=== PATIENT | female | born 1995 | race African-American/Black ===

== ENCOUNTER 2017-01-24 01:29 | Emergency (ER) | payer BC ==
[~2017-01-24] VITALS: Ht 160 cm; Wt 59.0 kg
--- NOTE | 2017-01-24 01:48 | PHYS DOC ---
General Chief Complaint: UPPER EXTREMITY INJURY Stated Complaint: LEFT PINKIE INJURY Time Seen by MD: 01:32 Source: patient Exam Limitations: no limitations Problems: History of Present Illness Initial Comments Patient is a 21-year-old female who comes to the ED with a family member complaining of left fifth finger injury. Patient states that she was at a [employer] activity playing basketball tonight when she accidentally jammed her left fifth finger against an opposing player. She says her finger may have bent backwards when she is not sure. She has pain and swelling at the proximal interphalangeal joint. She has decreased range of motion due to discomfort but denies numbness tingling weakness or radiating symptoms. No pre-arrival treatment patient is normally healthy she takes no daily medications and she denies any other complaints or injuries resulting from the inciting events. Onset: this morning Severity: moderate Pain/Injury Location: left 5th finger Method of Injury: direct blow, sports injury Modifying Factors: worse with jarring, worse with movement, improves with rest Allergies: Coded Allergies: No Known Drug Allergies (Unverified , 01/24/17) Past Medical History Medical History: no pertinent history Surgical History: no surgical history Social History Smoker: non-smoker Alcohol: none Drugs: none Review of Systems Constitutional: denies chills, denies fever Respiratory: denies cough Cardiovascular: denies chest pain, denies palpitations Gastrointestinal: denies nausea, denies vomiting Genitourinary: denies dysuria, denies frequency Musculoskeletal: see HPI Skin: see HPI Psychiatric/Neurological: see HPI Physical Exam General Appearance: WD/WN, no apparent distress Neck: non-tender, supple Cardiovascular/Respiratory: normal peripheral pulses, no respiratory distress Hand: swelling (bruising tenderness and swelling noted at the left fifth finger proximal interphalangeal joint, ligaments and tendons are intact there is no palpable bony deformity the extremity is neurovascularly intact.) Neurologic/Tendon: normal sensation, normal motor functions, normal tendon functions, responds to pain, no evidence tendon injury Psychiatric: alert, oriented x 3 Skin: warm/dry (left fifth finger bruising as above) Orders, Labs, Meds Fingers left: Volar plate fracture of the proximal interphalangeal joint of the left fifth finger. Interpreted by Dr. Fritz. I discussed the treatment plan with the patient and her father expressed agreement and understanding. The finger was neurovascularly intact after metal finger splint placed. Departure Time of Disposition: 02:03 Disposition: 01 HOME, SELF-CARE Diagnosis: volar plate fracture PIP joint L 5th finger Condition: GOOD Patient Instructions: Finger Fracture, [id number], RICE - Routine Care for Injuries, [id number] Additional Instructions: PARVIZ, see handout. Wear the metal finger splint +/- ceci taping except when bathing and until cleared by your doctor. No use left hand until cleared by your doctor. [id number] Tylenol or ibuprofen as needed. Follow-up with your doctor next week for recheck and possible orthopedics referral. Return to ED with new or changing symptoms. ADELAIDA FRITZ DO Jan 24, 2017 01:48
[2017-01-24 02:00] VITALS: BP 105/72
--- NOTE | 2017-01-24 08:22 | RAD ---
Indication injury. Pain. AP oblique and lateral views were obtained targeted to the small finger of the left hand. There is a tiny avulsion fracture off the base of the middle phalanx on the flexor side. No additional bony finding seen
== END 2017-01-24 02:20 | disposition home or self-care (01) ==
LOC: ER 01:29
DX: S62.617A Displaced fracture of proximal phalanx of left little finger, initial encounter for closed fracture (principal); W50.0XXA Accidental hit or strike by another person, initial encounter; Y93.67 Activity, basketball; Y99.8 Other external cause status; Y92.22 Religious institution as the place of occurrence of the external cause
CPT/HCPCS: 29130; 73140; 99284-25

== ENCOUNTER 2017-09-07 00:45 | Emergency (ER) | payer BC ==
[~2017-09-07] VITALS: Ht 160 cm; Wt 62.0 kg
--- NOTE | 2017-09-07 00:51 | ED.ADGEN ---
Past History Past Medical History: No Pertinent History Past Surgical History: No Surgical History Alcohol Use: None Drug Use: None Adult General Chief Complaint Chief Complaint " I think .. I got the flu or something. .. I ve just been sick since yesterday... I just hurt all over... " HPI HPI Patient is a 21 year old female who presents with above hx and complaints of fever, chills, myalgia, arthralgia, malaise, nausea, severe pharyngitis and fatigue. Patient's symptoms been present less than 24 hours. Denies any intake bad food. Denies any history of immunosuppression. Denies any recent travel or specific ill contacts. Patient did not receive a flu vaccination this fall. Pt. did take some ibuprofen 4 hours ago with no relief in symptoms . Pt. normally follows with Dr. Vega. Review of Systems Review of Systems Constitutional: Hx. fever and chills [] Eyes: Denies change in visual acuity, redness, or eye pain [] HENT: Denies nasal congestion . Hx.of sore throat [] Respiratory: Denies cough or shortness of breath [] Cardiovascular: No additional information not addressed in HPI [] GI: Denies abdominal pain, nausea, vomiting, bloody stools or diarrhea [] : Denies dysuria or hematuria [] Musculoskeletal: Denies back pain or joint pain [] Integument: Denies rash or skin lesions [] Neurologic: Denies headache, focal weakness or sensory changes [] Endocrine: Denies polyuria or polydipsia [] All other systems were reviewed and found to be within normal limits, except as documented in this note. Family History Family History Non-contributory Current Medications Current Medications Current Medications Medications (Trade) Dose Ordered Sig/Rosi Start Time Stop Time Status Last Admin Dose Admin Cephalexin HCl (Keflex) 500 mg 1X ONCE 09/07/17 03:00 09/07/17 03:01 DC 09/07/17 03:00 500 MG Lactated Ringer's 1,000 ml @ 1,000 mls/hr 1X ONCE 09/07/17 02:00 09/07/17 02:59 DC 09/07/17 02:08 1,000 MLS/HR Ondansetron HCl (Zofran Odt) 8 mg 1X ONCE 09/07/17 02:00 09/07/17 02:01 DC 09/07/17 02:09 8 MG Oxycodone/ Acetaminophen (Percocet 5/325) 2 tab 1X ONCE 09/07/17 02:00 09/07/17 02:01 DC 09/07/17 02:08 2 TAB Potassium Chloride (KCl Oral Soln) 20 meq 1X ONCE 09/07/17 03:00 09/07/17 03:01 DC 09/07/17 03:00 20 MEQ Prednisone (Prednisone) 60 mg 1X ONCE 09/07/17 03:00 09/07/17 03:01 DC 09/07/17 03:00 60 MG Allergies Allergies Allergies Coded Allergies Type Severity Reaction Last Updated Verified No Known Drug Allergies 01/24/17 No Physical Exam Physical Exam Constitutional: Well developed, well nourished, in moderately acute distress, ill in appearance. [] HENT: Normocephalic, atraumatic, bilateral external ears normal, oropharynx dry , injected pharynx, exudate on tonsils , nose rhinorrhea. Eyes: PERRLA, EOMI, conjunctiva normal, no discharge. [] Neck: Normal range of motion, no tenderness, supple, no stridor. Adenopathy anterior chain. Cardiovascular: Tachycardia Heart rate regular rhythm, no murmur [] Lungs & Thorax: Bilateral breath sounds equal with scattered wheezes on auscultation [] Abdomen: Bowel sounds hyperactive, soft, no tenderness, no masses, no pulsatile masses. [] Skin: Warm, dry, no erythema, no rash. [] Back: No tenderness, no CVA tenderness. [] Extremities: No tenderness, no cyanosis, no clubbing, ROM intact, no edema. [] Neurologic: Alert and oriented X 3, normal motor function, normal sensory function, no focal deficits noted. [] Psychologic: Affect anxious, , judgement normal, mood normal. [] Current Patient Data Lab Results Laboratory Tests Test 09/07/17 00:46 09/07/17 01:30 09/07/17 01:45 09/07/17 02:00 POC Urine HCG, Qualitative hcg negative (Negative) Urine Collection Type Void Urine Color Yellow Urine Clarity Hazy Urine pH 7.5 Urine Specific [place] 1.020 Urine Protein Trace (NEG-TRACE) Urine Glucose (UA) Neg mg/dL (NEG) Urine Ketones (Stick) Neg mg/dL (NEG) Urine Blood Trace (NEG) Urine Nitrite Neg (NEG) Urine Bilirubin Neg (NEG) Urine Urobilinogen Dipstick 2 mg/dL (0.2 mg/dL) Urine Leukocyte Esterase Neg (NEG) Urine RBC Occ /HPF (0-2) Urine WBC Occ /HPF (0-4) Urine Squamous Epithelial Cells Few /LPF Urine Bacteria Few /HPF (0-FEW) Urine Opiates Screen Neg (NEG) Urine Methadone Screen Neg (NEG) Urine Barbiturates Neg (NEG) Urine Phencyclidine Screen Neg (NEG) Urine Amphetamine/Methamphetamine Neg (NEG) Urine Benzodiazepines Screen Neg (NEG) Urine Cocaine Screen Neg (NEG) Urine Cannabinoids Screen Neg (NEG) Urine Ethyl Alcohol Neg (NEG) Influenza Type A (Rapid) Negative (NEGATIVE) Influenza Type B (Rapid) Negative (NEGATIVE) Group A Streptococcus Rapid Positive (NEGATIVE) White Blood Count 14.6 x10^3/uL (4.0-11.0) H Red Blood Count 3.94 x10^6/uL (3.50-5.40) Hemoglobin 12.4 g/dL (12.0-15.5) Hematocrit 36.8 % (36.0-47.0) Mean Corpuscular Volume 93 fL (79-100) Mean Corpuscular Hemoglobin 32 pg (25-35) Mean Corpuscular Hemoglobin Concent 34 g/dL (31-37) Red Cell Distribution Width 13.5 % (11.5-14.5) Platelet Count 178 x10^3/uL (140-400) Neutrophils (%) (Auto) 89 % (31-73) H Lymphocytes (%) (Auto) 5 % (24-48) L Monocytes (%) (Auto) 6 % (0-9) Eosinophils (%) (Auto) 0 % (0-3) Basophils (%) (Auto) 0 % (0-3) Neutrophils # (Auto) 13.0 x10^3uL (1.8-7.7) H Lymphocytes # (Auto) 0.8 x10^3/uL (1.0-4.8) L Monocytes # (Auto) 0.9 x10^3/uL (0.0-1.1) Eosinophils # (Auto) 0.0 x10^3/uL (0.0-0.7) Basophils # (Auto) 0.0 x10^3/uL (0.0-0.2) Sodium Level 138 mmol/L (136-145) Potassium Level 3.3 mmol/L (3.5-5.1) L Chloride Level 103 mmol/L (98-107) Carbon Dioxide Level 26 mmol/L (21-32) Anion Gap 9 (6-14) Blood Urea Nitrogen 14 mg/dL (7-20) Creatinine 0.8 mg/dL (0.6-1.0) Estimated GFR (Cockcroft-Gault) 111.8 Glucose Level 105 mg/dL (70-99) H Calcium Level 8.6 mg/dL (8.5-10.1) EKG EKG [] Radiology/Procedures Radiology/Procedures [] Course & Med Decision Making Course & Med Decision Making Pertinent Labs and Imaging studies reviewed. (See chart for details). Push fluids and cool fruit drinks. Tylenol and Ibuprofen for pain and fever. Gargle with Listerine 4 x day or warm salt water. Keflex 500 mg tid x 7 days. Push fruit juices. Follow up with primary. Return if any concerns. [] Final Impression Final Impression 1. Fever/ Chills 2. Nausea[] 3. Strept. Pharyngitis 4. Hypokalemia Problems: Dragon Disclaimer Dragon Disclaimer This electronic medical record was generated, in whole or in part, using a voice recognition dictation system. BERTHA DOBBS MD Sep 07, 2017 00:51
[2017-09-07] MEDS ORDERED: ONDANSETRON ODT 4 MG TAB.RAPDIS PO ONE (02:00)
[2017-09-07] MEDS ORDERED: IV RINGERS SOLUTION,LACTATED 1,000 ML IV ONE (02:00)
[2017-09-07] MEDS ORDERED: oxyCODONE/APAP 5/325 1 TAB TABLET PO ONE (02:00)
[2017-09-07 02:19] LABS: BASO % 0 % (0-3); EOS % 0 % (0-3); HEMATOCRIT 36.8 % (36.0-47.0); HEMOGLOBIN 12.4 g/dL (12.0-15.5); LYMPH # 0.8 x10^3/uL (1.0-4.8); LYMPH % 5 % (24-48); MEAN CORPUSCULAR HEMOGLOBIN 32 pg (25-35); MEAN CORPUSCULAR HGB CONC 34 g/dL (31-37); MEAN CORPUSCULAR VOLUME 93 fL (79-100); MONO # 0.9 x10^3/uL (0.0-1.1); MONO % 6 % (0-9); NEUT % 89 % (31-73); PLATELET COUNT 178 x10^3/uL (140-400); RED BLOOD COUNT 3.94 x10^6/uL (3.50-5.40); RED CELL DISTRIBUTION WIDTH 13.5 % (11.5-14.5); WHITE BLOOD COUNT 14.6 x10^3/uL (4.0-11.0)
[2017-09-07 02:23] LABS: CALCIUM 8.6 mg/dL (8.5-10.1); CREATININE 0.8 mg/dL (0.6-1.0); GFR 111.8; POTASSIUM 3.3 mmol/L (3.5-5.1)
[2017-09-07 02:24] LABS: AMPHETAMINE/METHAMPHETAMINE NEG (NEG); BARBITURATES NEG (NEG); BENZODIAZEPINES NEG (NEG); CANNABINOIDS NEG (NEG); COCAINE NEG (NEG); METHADONE NEG (NEG); OPIATES NEG (NEG); PHENCYCLIDINE NEG (NEG)
[2017-09-07] MEDS ORDERED: CEPH-264 PO (02:31)
[2017-09-07 02:35] LABS: BILIRUBIN,URINE NEG (NEG); CLARITY,URINE HAZY; COLOR,URINE YELLOW; GLUCOSE,URINE NEG (NEG)
[2017-09-07 02:36] LABS: BACTERIA,URINE FEW /HPF (0-FEW); NITRITE,URINE NEG (NEG); RBC,URINE OCC /HPF (0-2); SQUAMOUS EPITHELIAL CELL,UR FEW /LPF; UROBILINOGEN,URINE 2 mg/dL (0.2 mg/dL); WBC,URINE OCC /HPF (0-4)
[2017-09-07 02:47] LABS: INFLUENZA A PATIENT NEGATIVE (NEGATIVE); INFLUENZA B PATIENT NEGATIVE (NEGATIVE)
[2017-09-07 03:00] VITALS: BP 114/70
[2017-09-07] MEDS ORDERED: CEPHALEXIN 250 MG CAPSULE PO ONE (03:00)
[2017-09-07] MEDS ORDERED: POTASSIUM CHLORIDE 20 MEQ/15 ML ORAL LIQUID. PO ONE (03:00)
[2017-09-07] MEDS ORDERED: predniSONE 20 MG TABLET PO ONE (03:00)
== END 2017-09-07 03:32 | disposition home or self-care (01) ==
LOC: ER 00:45
DX: J02.0 Streptococcal pharyngitis (principal); E87.6 Hypokalemia
CPT/HCPCS: 36415; 80048; 80307; 81001; 81025; 85025; 87804; 87880; 96360; 99284; J7120; J7512; Q0162; G0479